=== PATIENT | male | born 1955 | race Caucasian/White ===

== ENCOUNTER 2017-04-23 07:41 | Outpatient (CLI) | payer OTHER ==
[2017-04-23] MEDS ORDERED: Iopamidol 370 76% 100 ML VIAL ONE (13:25)
== END 2017-04-23 07:42 | disposition home or self-care (01) ==
LOC: BICCT 07:41
PROVIDERS: ATTEND Internal Medicine Medical Oncology
DX: C91.10 Chronic lymphocytic leukemia of B-cell type not having achieved remission (principal); K76.89 Other specified diseases of liver; N43.3 Hydrocele, unspecified; K57.30 Diverticulosis of large intestine without perforation or abscess without bleeding; N62 Hypertrophy of breast
CPT/HCPCS: 71260; 74177

== ENCOUNTER 2018-03-04 09:31 | Outpatient (CLI) | payer OTHER ==
[2018-03-04 10:15] LABS: Estimated GFR-MDRD - POC Greater than 90
--- NOTE | 2018-03-04 13:27 | CT ---
CT CHEST AND ABDOMEN WITH IV CONTRAST: Technique: Multiple contiguous axial images were obtained through the chest and abdomen with IV enhan cement. Indications: Lymphocytic leukemia/lymphoma for staging. Comparison: CT chest, abdomen, and pelvis 04-23-17. FINDINGS: CT CHEST: Review of the lung barrera again shows a 5 mm nodular density in the right middle lobe along the fissu re which was described previously. This has a linear configuration on coronal images. It is stable an d benign in appearance. Slightly laterally and posterior is another nodular density in the peripheral right midlung measuring in the 4 mm range. This is somewhat limited in the axial projection. This lesion is also stable. Lung barrera are otherwise clear. No infiltrate or effusion. Mediastinum is unremarkable. No adenopathy. There are nonspecific mediastinal and hilar lymph nodes w hich are subcentimeter. There are mild bilateral axillary adenopathy. Lymph nodes are more prominent in the left axilla. Ther e is a retropectoral lymph node in the inferior left axillary region which is slightly increased in s ize from the prior study. It measures up to 2.5 cm where as it previously measured 1.8 cm greatest di mension. There is a linear shaped lymph node in the left axilla measuring 3.1 cm craniocaudal in the coronal p late today. This previously measured 2.5 cm. Nonspecific right axillary lymph nodes are also seen, slightly more prominent today. Lymph nodes on t he right measure up to 1.5 cm. Osseous structures are unremarkable in the thorax. IMPRESSION: 1. Small nodules in the right lung appear stable and benign as described above. 2. Bilateral axillary adenopathy more prominent on the left. There are at least 2 left axillary lymph nodes which have increased in size when compared to 04-23-17 with dimensions given above. CT ABDOMEN: Images of the liver again show a 2.5 cm low density lesion in the left lobe of the liver anteriorly w hich was described previously. This lesion is unchanged. There is a second low density lesion in the inferior right lobe of the liver measuring approximately 1.5 cm. This was described previously and al so appears stable. Spleen and pancreas unremarkable. Stomach reveals a thickened gastric wall. This has a similar appearance to the prior study but has an abnormal appearance. Adrenal glands appear normal. Thickening of the diaphragmatic pleura medially on the right which is nonspecific and stable. Visualized bowel loops unremarkable. The small bowel loops show mild fluid filled distention which is nonspecific. Horseshoe kidney is again noted. Aorta is normal caliber. Small nonspecific periaortic lymph nodes are subcentimeter and stable. Osseous structures are unremarkable. IMPRESSION: 1. Two low density lesions in the liver described previously are again seen and appear unchanged. 2. There is gastric wall thickening which was also present on the prior exam. POS: [facility]
== END 2018-03-04 09:32 | disposition home or self-care (01) ==
LOC: BICCT 09:31
PROVIDERS: ATTEND Internal Medicine Medical Oncology
DX: C91.10 Chronic lymphocytic leukemia of B-cell type not having achieved remission (principal); J98.4 Other disorders of lung; R94.5 Abnormal results of liver function studies; K76.9 Liver disease, unspecified; K31.9 Disease of stomach and duodenum, unspecified; R91.8 Other nonspecific abnormal finding of lung field; R59.0 Localized enlarged lymph nodes
CPT/HCPCS: 71260; 74160; 82565

== ENCOUNTER 2019-05-02 10:16 | Outpatient (CLI) | payer OTHER ==
--- NOTE | 2019-05-02 15:29 | NM ---
Radionucleotide bone scan HISTORY: Prostate cancer. Initial staging. FINDINGS: Heterogeneous uptake with the appearance of degenerative changes involve the hands, wrists, knees, and feet. And, to a lesser extent, the spine. Increased uptake about the mouth consistent with chronic dental disease. Uptake over the right pelvis has the appearance of urine contamination. IMPRESSION: Prominent degenerative changes. No scintigraphic evidence of osseous metastases.
== END 2019-05-02 10:17 | disposition home or self-care (01) ==
LOC: NM 10:16
PROVIDERS: ATTEND Urology
DX: C61 Malignant neoplasm of prostate (principal); M19.90 Unspecified osteoarthritis, unspecified site
CPT/HCPCS: 78306; A9503

== ENCOUNTER 2019-09-05 21:20 | Emergency (ER) | payer OTHER ==
[~2019-09-05 21:20] MED LIST: Iopamidol-370 76% 500 ML 1 ML ONE
[2019-09-05 21:48] LABS: Mean Corpuscular HGB CONC 33.8 g/dL (32.0-36.0); Mean Corpuscular Hemoglobin 30.7 pg (27.0-31.0); Mean Corpuscular Volume 90.9 fL (78.0-98.0); Mean Platelet Volume 7.9 fL (7.4-10.4); Platelet Count 211 thou/uL (130-400); Red Blood Cell (RBC) Count 4.23 mill/uL (4.70-6.10); White Blood Cell (WBC) Count 30.1 thou/uL (4.8-10.8)
[2019-09-05 22:06] LABS: ALT (SGPT) 34 U/L (8-55); AST (SGOT) 29 U/L (5-34); Albumin 4.3 g/dL (3.4-4.8); Alkaline Phosphatase 57 U/L (40-110); Anion Gap 11 mmol/L (10-20); BUN (Urea Nitrogen) 6 mg/dL (8.4-25.7); Bilirubin, Total 0.7 mg/dL (0.2-1.2); Calc. Creatinine Clearance 0 mL/min (70-130); Calcium 8.9 mg/dL (7.8-10.44); Carbon Dioxide 24 mmol/L (23-31); Chloride 97 mmol/L (98-107); Estimated GFR-MDRD Greater than 90; Globulin 2.3 g/dL (2.4-3.5); Glucose 98 mg/dL (80-115); Potassium 3.6 mmol/L (3.5-5.1); Protein, Total 6.6 g/dL (5.8-8.1); Sodium 128 mmol/L (136-145)
[2019-09-05 22:10] LABS: Band 5 % (5-11); Hypochromia SLIGHT = 6-15 cells (100X) (0-5/hpf); Lymphocytes 42 % (21-51); MDiff Complete? YES; Monocytes 4 % (0-10); Neutrophil 49 % (42-75); Platelet Morphology Comment Appears Adequate
--- NOTE | 2019-09-06 09:05 | RAD ---
PORTABLE CHEST: History: Cough, chest pressure FINDINGS: Heart size and mediastinum are within normal limits. The lungs are clear of any infiltrates. No bony findings. IMPRESSION: No active intrathoracic disease. POS: [facility]
--- NOTE | 2019-09-06 11:09 | CT ---
CT ANGIO OF CHEST PERFORMED WITH INTRAVENOUS CONTRAST ENHANCEMENT WITH 3D RECONSTRUCTIONS: HISTORY: Chest pain. Inconclusive COVID test. FINDINGS: The lungs are clear of any infiltrative process. No radiographic features that would suggest COVID. No pleural effusion. The thoracic aorta is normal in caliber. There is good pulmonary artery opacification and no CT evid ence for pulmonary embolus. Coronary calcifications are noted. Visualized liver parenchymal shows no focal findings. IMPRESSION: 1. No CT evidence for pulmonary embolus. 2. Moderate coronary artery calcifications. POS: [facility]
--- NOTE | 2019-09-10 17:30 | EKG ---
Test Reason : CHEST DISCOMFORT Blood Pressure : / mmHG Vent. Rate : 065 BPM Atrial Rate : 065 BPM P-R Int : 142 ms QRS Dur : 084 ms QT Int : 404 ms P-R-T Axes : 009 023 006 degrees QTc Int : 420 ms Normal sinus rhythm Nonspecific ST abnormality Abnormal ECG Confirmed by NU Jones, SERAFIN ([id number]), proposal editor LIV VÁZQUEZ ([id number] on 09/10/2019 5:29:50 PM Referred By: [facility] Confirmed By:SERAFIN JUDGE M.D.
== END 2019-09-05 23:33 | disposition home or self-care (01) ==
LOC: ERS 21:20
DX: R07.89 Other chest pain (principal); R05 Cough; I10 Essential (primary) hypertension; Z20.828 Contact with and (suspected) exposure to other viral communicable diseases; Z79.899 Other long term (current) drug therapy
CPT/HCPCS: 71045; 71275; 80053; 84484; 85025; 87635; 93005; Q9967; U0003

== ENCOUNTER 2021-01-28 11:53 | Emergency (ER) | payer BC, OTHER ==
[2021-01-28 12:24] LABS: Hemoglobin 13.1 g/dL (14.0-18.0); Mean Corpuscular HGB CONC 34.9 g/dL (32.0-36.0); Mean Corpuscular Hemoglobin 32.6 pg (27.0-31.0); Mean Corpuscular Volume 93.4 fL (78.0-98.0); Mean Platelet Volume 7.6 fL (7.4-10.4); Platelet Count 177 thou/uL (130-400); RBC Distribution Width 11.6 % (11.5-14.5); Red Blood Cell (RBC) Count 4.03 mill/uL (4.70-6.10); White Blood Cell (WBC) Count 16.3 thou/uL (4.8-10.8)
[2021-01-28 12:46] LABS: Band 10 % (5-11); Lymphocytes 30 % (21-51); MDiff Complete? YES; Monocytes 3 % (0-10); Neutrophil 28 % (42-75); Platelet Morphology Comment Appears Adequate; RBC Morphology Normal; Reactive Lymphocytes 29 % (0-10)
[2021-01-28 12:47] LABS: ALT (SGPT) 27 U/L (8-55); AST (SGOT) 32 U/L (5-34); Albumin 4.2 g/dL (3.4-4.8); Alkaline Phosphatase 74 U/L (40-110); Anion Gap 10 mmol/L (10-20); BUN (Urea Nitrogen) 11 mg/dL (8.4-25.7); Bilirubin, Total 0.7 mg/dL (0.2-1.2); Calc. Creatinine Clearance 0 mL/min (70-130); Calcium 9.6 mg/dL (7.8-10.44); Carbon Dioxide 27 mmol/L (23-31); Chloride 101 mmol/L (98-107); Globulin 2.5 g/dL (2.4-3.5); Glucose 109 mg/dL (80-115); Potassium 4.1 mmol/L (3.5-5.1); Protein, Total 6.7 g/dL (5.8-8.1); Sodium 134 mmol/L (136-145)
[2021-01-28] MEDS ORDERED: Aspirin Chewable 81 MG TAB ONE (14:54)
== END 2021-01-28 15:25 | disposition short-term general hospital (02) ==
LOC: ERS 11:53
DX: R55 Syncope and collapse (principal); R41.82 Altered mental status, unspecified; I10 Essential (primary) hypertension; E78.5 Hyperlipidemia, unspecified; Z85.46 Personal history of malignant neoplasm of prostate; Z79.899 Other long term (current) drug therapy
CPT/HCPCS: 36415; 70450; 80053; 84484; 85025; 85379; 93005